=== PATIENT | male | born 1945 | race Caucasian/White ===

== ENCOUNTER → 2025-01-11 | Outpatient (CLI) | payer MEDICARE ==
[~2025-01-11] MED LIST: AMLO1CAP PO; APIX5TAB PO; ASPI-1197 PO; ATOR10TA69 PO; FLUT1BLS12 IH; HYDR25TA PO; IPRA3AMP24 IH; LATA2.5D14 OP; LOVA20TA3 PO; MAGN400C PO; METO-409 PO; PRIM50TA23 PO; SPIR25TA6 PO; TIMO1DRO9 OP
[2025-01-11 15:11] LABS: BASOPHILS # (AUTO) 0.03 K/uL (0.00-0.20); BASOPHILS % (AUTO) 0.4 % (0.0-5.0); EOSINOPHILS # (AUTO) 0.62 K/uL (0.00-0.70); EOSINOPHILS % (AUTO) 8.2 % (0.0-8.0); HEMATOCRIT 36.8 % (42-54); IMMATURE GRANULOCYTE ABSOLUTE 0.03 K/uL (0-1); LYMPHOCYTES # (AUTO) 0.8 K/uL (1.0-4.8); MEAN CORPUSCULAR HEMOGLOBIN 30.8 pg (27.0-33.0); MEAN CORPUSCULAR HGB CONC 30.7 g/dL (32.0-36.0); MEAN CORPUSCULAR VOLUME 100.3 fL (79-99); MONOCYTES # (AUTO) 0.7 K/uL (0.1-1.0); MONOCYTES % (AUTO) 9.6 % (3.0-13.0); NEUTROPHILS # (AUTO) 5.4 K/uL (1.8-7.7); NEUTROPHILS % (AUTO) 71.4 % (40.0-77.0); PLATELET COUNT (AUTO) 188 K/uL (130-400); RED BLOOD CELL COUNT(AUTO) 3.67 MIL/uL (4.50-6.20); RED CELL DISTRIBUTION WIDTH 14.8 % (11.0-15.5); WHITE BLOOD COUNT (AUTO) 7.6 K/uL (4.8-10.8)
[2025-01-11 15:21] LABS: ALBUMIN 2.7 g/dL (3.5-5.0); CREATININE 1.4 mg/dL (0.5-1.3); POTASSIUM 4.3 mmol/L (3.5-5.1)
[2025-01-11 15:30] LABS: HEMOGLOBIN A1C 6.1 % (4.0-6.0)
== END | disposition home or self-care (01) ==
LOC: LAB 11:53
PROVIDERS: ATTEND Student in an Organized Health Care Education/Training Program
DX: I11.9 Hypertensive heart disease without heart failure (principal); I48.91 Unspecified atrial fibrillation; E78.5 Hyperlipidemia, unspecified; R06.02 Shortness of breath; Z79.899 Other long term (current) drug therapy
CPT/HCPCS: 36415; 80053; 80061; 83036; 85025

== ENCOUNTER → 2025-02-05 | Outpatient (CLI) | payer MEDICARE ==
[2025-02-05 12:45] LABS: ALBUMIN 3.1 g/dL (3.5-5.0); BILIRUBIN,TOTAL 2.8 mg/dL (0.2-1.0); CREATININE 1.3 mg/dL (0.5-1.3); POTASSIUM 4.4 mmol/L (3.5-5.1); TOTAL PROTEIN, SERUM 7.7 g/dL (6.0-8.3)
[2025-02-05 13:11] LABS: HEMOGLOBIN A1C 5.5 % (4.0-6.0)
== END | disposition home or self-care (01) ==
LOC: LAB 10:32
PROVIDERS: ATTEND Student in an Organized Health Care Education/Training Program
DX: I11.9 Hypertensive heart disease without heart failure (principal); I48.91 Unspecified atrial fibrillation; E78.5 Hyperlipidemia, unspecified; Z79.899 Other long term (current) drug therapy
CPT/HCPCS: 36415; 80053; 80061; 83036

== ENCOUNTER → 2025-03-19 | Outpatient (CLI) | payer MEDICARE ==
[2025-03-19 12:38] LABS: ALBUMIN 3.3 g/dL (3.5-5.0); BILIRUBIN,TOTAL 0.9 mg/dL (0.2-1.0); CREATININE 1.4 mg/dL (0.5-1.3); POTASSIUM 4.5 mmol/L (3.5-5.1)
== END | disposition home or self-care (01) ==
LOC: LAB 10:20
PROVIDERS: ATTEND Student in an Organized Health Care Education/Training Program
DX: I48.91 Unspecified atrial fibrillation (principal)
CPT/HCPCS: 36415; 80053